=== PATIENT | male | born 1975 | race Caucasian/White ===

== ENCOUNTER 2023-01-30 06:03 | Emergency (ER) | payer SELFPAY ==
[2023-01-30] VITALS (25 sets, daily range): BP systolic 138–177; BP diastolic 83–97; PULSE 56–84; RESP 10–23; TEMP 36.6; O2SAT 95–100
--- NOTE | ~2023-01-30 | CT_ITS ---
CT of the Abdomen and Pelvis: Indication: Abdominal pain Technique: 2.5 mm axial scans were obtained through the abdomen and pelvis following intravenous adm inistration of 100 cc of Omnipaque 350. Dose reduction technique was used on this scan by utilizing a utomated exposure control and iterative reconstruction technique. The dose-length product (DLP) was 3 01.45 mGy-cm. Findings: Scans through the lung bases demonstrate multiple mildly irregular nodular opacities, larg est at left lung base measuring 1 cm in diameter (axial image 20).. The liver, spleen, pancreas, adrenals and left kidney are within normal limits. Small calcified galls tones noted. There is a 3 mm stone at the mid right ureter (axial image 106), resulting in mild to mo derate right hydroureteronephrosis. No evidence of aortic aneurysm. No lymphadenopathy. No bowel obstruction or bowel wall thickening. There is no evidence to suggest acute appendicitis. Images through the pelvis were performed. Urinary bladder unremarkable. Prostate gland and seminal ve sicles are unremarkable. No ascites. Impression: 3 mm stone at the mid right ureter, resulting in mild to moderate right hydroureteronephrosis. Multiple mildly irregular nodules in the visualized lung bases, largest measuring up to 1 cm. These a re indeterminate. Diagnostic considerations could include infectious/inflammatory process, chronic po stinflammatory change/chronic nodules, or possibly metastatic disease. Clinical correlation required. Consider dedicated chest CT to further evaluate for additional abnormalities in the remainder of the chest. Comparison with any prior exams from an outside institution (if such exist) would be very use ful to assess for chronicity of these findings. Otherwise, consider PET/CT, short-term follow-up CT, or even attempted tissue sampling, as indicated. Reviewed, dictated and finalized at [facility]. Impression: 3 mm stone at the mid right ureter, resulting in mild to moderate right hydrour eteronephrosis. Multiple mildly irregular nodules in the visualized lung bases, largest measuri ng up to 1 cm. These are indeterminate. Diagnostic considerations could include infectious/inflammatory process, chronic postinflammatory change/chronic nodul es, or possibly metastatic disease. Clinical correlation required. Consider ded icated chest CT to further evaluate for additional abnormalities in the remaind er of the chest. Comparison with any prior exams from an outside institution (i f such exist) would be very useful to assess for chronicity of these findings. Otherwise, consider PET/CT, short-term follow-up CT, or even attempted tissue s ampling, as indicated.
[2023-01-30 06:48] LABS: Basophils Percent Auto 0.5 % (0.2-1.2); Eosinophils Absolute Auto 0.2 K/mm3 (0-0.3); Eosinophils Percent Auto 3.6 % (0-4.4); Hematocrit 42.7 % (42.0-52.0); Hemoglobin 14.5 g/dL (14.0-18.0); Immature Granulocyte Absolute 0.03 K/mm3 (0.00-0.031); Immature Granulocyte Percent A 0.5 % (0-0.5); Lymphocytes Absolute Auto 1.57 K/mm3 (0.9-3.2); Lymphocytes Percent Auto 24.8 % (18.3-44.2); Mean Corpuscular Hemoglobin 30.5 pg (26-34); Mean Corpuscular Volume 89.7 fl (80-100); Mean Platelet Volume 10.5 fl (7.4-10.4); Monocytes Absolute Auto 0.7 K/mm3 (0.1-0.6); Monocytes Percent Auto 10.7 % (2.6-8.5); Neutrophils Absolute Auto 3.8 K/mm3 (1.3-6.7); Neutrophils Percent Auto 59.9 % (45.5-73.1); Platelet Count Result 286 k/mm3 (150-375); Red Blood Count 4.76 M/mm3 (4.6-6.20); Red Cell Distribution Width 12.7 % (11.5-14.5); White Blood Count 6.3 K/mm3 (4.5-10.0)
--- NOTE | 2023-01-30 06:51 | ED.GENADULT ---
HPI - General Adult General Chief complaint: Abdominal Pain <Art Martins MD - Last Filed: 01/30/23 06:55> Stated complaint: abd pain <Art Martins MD - Last Filed: 01/30/23 06:55> Time Seen by Provider: 01/30/23 06:47 <Art Martins MD - Last Filed: 01/30/23 06:55> History of Present Illness HPI narrative: Patient is a 47-year-old gentleman who presents emergency department with chief complaint of abdominal pain. Patient reports he has history of insulin-dependent diabetes reports approximately 1 hour ago started having pain in his abdomen that radiates to his back. Patient reports the pain is a sharp aching-like pain reports that he has had nausea and 2 episodes of vomiting. Patient reports that the pain is not improved by anything and reports it is worsened by movement and when he hit bumps in the vehicle. Patient reports no prior intra-abdominal surgeries <Art Martins MD - Last Filed: 01/30/23 06:55> Related Data Allergies/adverse reactions: Allergies Allergy/AdvReac Type Severity Reaction Status Date / Time metoclopramide [From Reglan] AdvReac Unknown Verified 01/30/23 06:27 <Art Martins MD - Last Filed: 01/30/23 06:55> Review of Systems Review of Systems: A 10 system review of systems was completed on the patient and is negative except for what is stated in the HPI. Nursing and ancillary documentation was reviewed. <Art Martins MD - Last Filed: 01/30/23 06:55> Exam Narrative: GENERAL: Well-appearing, well-nourished, and in no acute distress. HEAD: Normocephalic, atraumatic. EYES: PERRLA and EOMI. ENT: Nares clear, no rhinorrhea or epistaxis. Mucous membranes moist. NECK: Supple. CHEST: Clear to auscultation. No respiratory distress. HEART: Regular rate and rhythm. No murmur heard. Normal peripheral pulses. ABDOMEN: Soft, nontender, nondistended, normal active bowel sounds. EXTREMITIES: Normal range of motion. No edema. SKIN: Warm, dry, no rash. NEURO: No focal deficits. Alert and oriented x3. PSYCH: Normal mood and affect. <Art Martins MD - Last Filed: 01/30/23 06:55> Course Reevaluation(s) Reevaluation #1: I discussed with patient that CT shows 3 mm right mid ureter stone, gallstone and lung nodules. I reviewed symptoms of biliary colic. I also discussed he will need to follow up with PCP regarding his lung nodules. He was given return precautions regarding his kidney stone. His pain is much better after toradol 30 mg IV and flomax 0.4 mg <Tran Ware MD - Last Filed: 01/30/23 18:10> Date: 01/30/23 <Tran Ware MD - Last Filed: 01/30/23 18:10> Time: 09:35 <Tran Ware MD - Last Filed: 01/30/23 18:10> Vital Signs Vital signs: Vital Signs Temperature 97.8 F 01/30/23 06:07 Pulse Rate 56 L 01/30/23 06:07 Respiratory Rate 16 01/30/23 06:07 Blood Pressure 177/95 H 01/30/23 06:07 Pulse Oximetry 100 01/30/23 06:07 Oxygen Delivery Room Air 01/30/23 06:07 Temperature 97.8 F 01/30/23 06:07 Pulse Rate 76 01/30/23 10:45 Respiratory Rate 15 01/30/23 10:45 Blood Pressure 138/89 01/30/23 09:31 Pulse Oximetry 100 01/30/23 10:45 Oxygen Delivery Room Air 01/30/23 06:07 <Art Martins MD - Last Filed: 01/30/23 06:55> Vital Signs Temperature 97.8 F 01/30/23 06:07 Pulse Rate 56 L 01/30/23 06:07 Respiratory Rate 16 01/30/23 06:07 Blood Pressure 177/95 H 01/30/23 06:07 Pulse Oximetry 100 01/30/23 06:07 Oxygen Delivery Room Air 01/30/23 06:07 Temperature 97.8 F 01/30/23 06:07 Pulse Rate 76 01/30/23 10:45 Respiratory Rate 15 01/30/23 10:45 Blood Pressure 138/89 01/30/23 09:31 Pulse Oximetry 100 01/30/23 10:45 Oxygen Delivery Room Air 01/30/23 06:07 <Tran Ware MD - Last Filed: 01/30/23 18:10> Medical Decision Making Vital Signs Vital
[2023-01-30] MEDS: ONDANSETRON INJ 4 MG/2 ML VIAL IV PUSH (06:57)
[2023-01-30] MEDS: SODIUM CHLORIDE 0.9% IV 1,000 ML 999 ML IV CONT (06:57)
[2023-01-30] MEDS: MORPHINE SULFATE (*CRX) 4 MG/ML INJ IV PUSH (06:57)
[2023-01-30 07:01] LABS: Alanine Aminotransferase 26 U/L (6-50); Alkaline Phosphatase 53 U/L (38-126); Anion Gap 7 mmol/L (8-16); Aspartate Amino Transferase 40 U/L (17-59); Blood Urea Nitrogen 16 mg/dL (9-20); Calcium 8.8 mg/dL (8.4-10.2); Carbon Dioxide 28 mmol/L (22-30); Chloride 104 mmol/L (98-107); Estimated CRCL calculation 92 ml/min; Estimated Glomerular Filt Rate > 60; Glucose 215 mg/dL (65-110); Lipase 38 U/L (23-300); Sodium 139 mmol/L (137-145)
[2023-01-30 07:02] LABS: Add Urine Microscopic? YES; Appearance Urine Cloudy (Clear); Bacteria Urine None Seen /hpf; Bilirubin Urine Negative (Negative); Blood Urine 3+ (Negative); Color Urine Dark Yellow (Yellow); Glucose Urine UA 2+ mg/dL (Negative); Ketones Urine Negative (Negative); Leukocyte Esterase Ur Trace LEU/UL (Negative); Mucus Urine Present /lpf; Nitrate Urine Negative (Negative); Non Pathogenic Casts 0-2; Protein Urine 3+ mg/dL (Negative); RBC Urine >100 /hpf (0-2); Specific Grav Ur 1.027 (1.001-1.035); Squamous Epithelial Cell Urine None seen /hpf (Few); WBC Urine 0-5 /hpf; pH Urine 5.5 (5.0-9.0)
--- NOTE | 2023-01-30 07:12 | PC.NURSE ---
Patient report received from MICHELLE Britton. All questions answered and care of patient assumed.
--- NOTE | 2023-01-30 07:21 | PC.NURSE ---
Patient off unit to CT.
[2023-01-30] MEDS: KETOROLAC 30 MG/ML VIAL (*BKC) IV PUSH (08:39)
[2023-01-30] MEDS: TAMSULOSIN HCL 0.4 MG CAPSULE PO (08:40)
== END 2023-01-30 11:03 | disposition home or self-care (01) ==
PROVIDERS: Emergency Provider Emergency Medicine
DX: N20.1 Calculus of ureter (principal); K80.20 Calculus of gallbladder without cholecystitis without obstruction; R91.1 Solitary pulmonary nodule
CPT/HCPCS: 36415; 74177; 80053; 81001; 83690; 85025; 96361; 96374; 96375; 99284; A9270; J1885; J2270; J2405; J7030; Q9967